=== PATIENT | male | born 1960 | race Asian ===

== ENCOUNTER 2019-04-30 11:52 | Emergency (ER) | payer OTHER ==
[~2019-04-30] VITALS: Ht 154.9 cm; Wt 62.0 kg
[2019-04-30 11:55] VITALS: BP 177/83
== END 2019-04-30 12:56 | disposition home or self-care (01) ==
LOC: ED 12:50
DX: H91.21 Sudden idiopathic hearing loss, right ear (principal); I10 Essential (primary) hypertension; E11.9 Type 2 diabetes mellitus without complications; E78.00 Pure hypercholesterolemia, unspecified; F17.200 Nicotine dependence, unspecified, uncomplicated; H60.501 Unspecified acute noninfective otitis externa, right ear; Z86.73 Personal history of transient ischemic attack (TIA), and cerebral infarction without residual deficits
CPT/HCPCS: 99283

== ENCOUNTER 2020-05-09 08:24 | Emergency (ER) | payer OTHER ==
[~2020-05-09] VITALS: Ht 154.9 cm; Wt 58.0 kg
[~2020-05-09 08:24] MED LIST: ATOR40TA78 PO; LISI-167 PO; WARF2TAB99 PO; WARF4TAB65 PO
[2020-05-09] MEDS ORDERED: METHOCARBAMOL 500 MG TABLET ONE (09:00)
[2020-05-09] MEDS ORDERED: KETOROLAC 60 MG/2 ML ONE (09:00)
[2020-05-09] MEDS ORDERED: KETOROLAC 60 MG/2 ML IM ONE (10:00)
[2020-05-09] MEDS ORDERED: METHOCARBAMOL 500 MG TABLET PO ONE (10:00)
[2020-05-09 10:18] VITALS: BP 124/75
== END 2020-05-09 10:21 | disposition home or self-care (01) ==
LOC: ED 09:30
DX: M54.42 Lumbago with sciatica, left side (principal); R05 Cough; M79.652 Pain in left thigh; M10.9 Gout, unspecified; I10 Essential (primary) hypertension; E11.9 Type 2 diabetes mellitus without complications; E78.00 Pure hypercholesterolemia, unspecified; F17.210 Nicotine dependence, cigarettes, uncomplicated; Z86.73 Personal history of transient ischemic attack (TIA), and cerebral infarction without residual deficits
CPT/HCPCS: 72110; 96372; 99283; 99406; J1885; J7512

== ENCOUNTER → 2021-02-14 | Outpatient (CLI) | payer OTHER | END | disposition home or self-care (01) | LOC: RAD 08:39 | DX: Z12.2 Encounter for screening for malignant neoplasm of respiratory organs (principal); J44.9 Chronic obstructive pulmonary disease, unspecified; I25.10 Atherosclerotic heart disease of native coronary artery without angina pectoris; F17.210 Nicotine dependence, cigarettes, uncomplicated | CPT/HCPCS: 71271 ==

== ENCOUNTER 2021-06-15 09:27 | Emergency (ER) | payer OTHER ==
[~2021-06-15] VITALS: Ht 154.9 cm; Wt 57.8 kg
[2021-06-15] MEDS ORDERED: SODIUM CHLORIDE FLUSH 10ML SYR IVF ONE (11:00)
--- NOTE | 2021-06-15 11:03 | NUR ---
manager multicultural note: Pt to room from lobby.
[2021-06-15 11:52] LABS: BASOPHILS % (AUTO) 1 % (0-1); EOSINOPHILS % (AUTO) 0 % (1-7); LYMPHOCYTES % (AUTO) 18 % (22-44); MEAN CORPUSCULAR HEMOGLOBIN 29.1 pg (27.5-34.5); MEAN CORPUSCULAR HGB CONC 33.8 g/dL (33.2-36.2); MEAN PLATELET VOLUME 6.6 fL (7.4-10.4); MONOCYTES % (AUTO) 11 % (2-9); NEUTROPHILS % (AUTO) 70 % (42-75); PLATELET COUNT 169 x10^3/uL (130-400); RED BLOOD COUNT 5.21 x10^6/uL (4.38-5.82); RED CELL DISTRIBUTION WIDTH 15.2 % (9.4-14.8)
[2021-06-15 12:01] LABS: ANION GAP 6 mmol/L (5-15); CALCIUM 7.8 mg/dL (8.5-10.1); CHLORIDE 98 mmol/L (98-107)
[2021-06-15 12:02] LABS: MICROSCOPIC NOT IND
[2021-06-15 12:05] LABS: ALANINE AMINOTRANSFERASE 95 U/L (12-78); ALKALINE PHOSPHATASE 65 U/L (45-117); BILIRUBIN,TOTAL 1.2 mg/dL (0.2-1.0); TOTAL PROTEIN 7.7 g/dL (6.4-8.2)
--- NOTE | 2021-06-15 12:12 | NUR ---
PT RESTING COMFORTABLY IN BED. STATES HE IS PAIN FREE UNLESS HE COUGHS. IV ACCESS IN PLACE. [facility] SENT AWAITING CT
[2021-06-15] MEDS ORDERED: OMNIPAQUE 350 MG/ML, 100ML BOTTLE ONE ×2 (13:08→13:36)
--- NOTE | 2021-06-15 14:13 | NUR ---
ASSUMED CARE OF PATIENT. REPORT GIVEN FROM SINDY LUU
[2021-06-15 14:47] VITALS: BP 151/81
== END 2021-06-15 14:49 | disposition home or self-care (01) ==
LOC: ED 09:57
DX: R10.32 Left lower quadrant pain (principal)
CPT/HCPCS: 36415; 71045; 74177; 80053; 81003; 83690; 85025; 99285; Q9967